=== PATIENT | male | born 1955 | race Two or more races ===

== ENCOUNTER → 2023-02-04 | Emergency (ER) | payer OTHER ==
[~2023-02-04] VITALS: Ht 177.8 cm; Wt 61.2 kg
[~2023-02-04] MED LIST: PEGASYS180 MCG/1 SQ
[2023-02-04 11:33] LABS: HEMATOCRIT 42.9 % (39.0-48.0); HEMOGLOBIN 14.2 g/dL (13-16.00); MEAN CELL VOLUME 88.6 fL (80.0-100.00); MEAN CORPUSCULAR HEMOGLOBIN 29.4 pg (27.00-32.0); MEAN CORPUSCULAR HGB CONC 33.2 g/dl (32.0-36.0); PLATELET COUNT 190 K/uL (150-450); RED BLOOD COUNT 4.84 M/uL (4.00-6.00); RED CELL DISTRIBUTION WIDTH 13.6 % (11.5-14.5)
[2023-02-04 11:45] LABS: PH,URINE 6.5 (5.0-8.0); URINE APPEARANCE Clear; URINE BILIRRUBIN Negative (NEGATIVE); URINE BLOOD Negative; URINE COLOR Dark Yellow; URINE GLUCOSE Negative (NEGATIVE); URINE LEUKOCYTE Negative; URINE NITRATE Negative; URINE PROTEIN Negative (NEGATIVE); URINE UROBILINOGEN 0.2 E.U./dl
[2023-02-04 11:48] LABS: URINE BACTERIA 31.4 uL (0.0-1933); URINE RBC 2.7 uL (0.0-20.8)
[2023-02-04 11:50] LABS: URINE EPITHELIAL CELLS 0.6 uL (0.0-38.8)
[2023-02-04 11:56] LABS: INR 0.97; PARTIAL THROMBOPLASTIN TIME 27.6 SECONDS (22.0-34.0); PROTHROMBIN TIME 10.2 SECONDS (9.0-11.5)
[2023-02-04 11:59] LABS: CALCIUM 9.3 mg/dL (8.5-10.1); CREATININE SERUM 1.06 mg/dL (0.70-1.30); GFR 70.11; POTASSIUM 3.96 mEq/L (3.5-5.1)
== END | disposition left against medical advice (07) ==
LOC: ER 09:53 → EDBD 09:53 → ER 11:27
PROVIDERS: Emergency Medicine
DX: K52.89 Other specified noninfective gastroenteritis and colitis (principal)
CPT/HCPCS: 36415; 74176; 96365; 96366; 99284; J3490